=== PATIENT | female | born 1990 | race African-American/Black ===

== ENCOUNTER 2019-06-12 16:09 | Outpatient (CLI) | payer OTHER ==
[2019-06-12 16:57] LABS: Bilirubin,Urine NEG (Negative); Blood,Urine NEG (Negative); Color,Urine Yellow (Yellow); Mucus,Urine FEW /HPF; Urobilinogen,Urine < 2.0 mg/dL (<2.0)
[2019-06-12 17:00] LABS: Hematocrit 39.6 % (30.3-42.9); Hemoglobin 13.8 gm/dl (10.1-14.3); Mean Corpuscular HGB Conc 35 % (30-34); Mean Corpuscular Volume 95 fl (79-97); Platelet Count 264 K/mm3 (140-440); Red Blood Count 4.15 M/mm3 (3.65-5.03); Red Cell Distribution Width 14.7 % (13.2-15.2)
[2019-06-12 17:22] LABS: Alanine Aminotransferase 9 units/L (7-56); Uric Acid 6.4 mg/dL (3.5-7.6)
[2019-06-12 17:45] VITALS: BP 128/91
--- NOTE | 2019-06-12 20:50 | Ultrasound Report ---
ULTRASOUND BIOPHYSICAL PROFILE INDICATION / CLINICAL INFORMATION: elevated BP and blurred vision; ALAYNA. COMPARISON: None available. FINDINGS: BREATHING MOVEMENT = 2 GROSS BODY MOVEMENT = 2 TONE = 2 QUALITATIVE AMNIOTIC FLUID VOLUME = 2 TOTAL BIOPHYSICAL SCORE = 05/25 AMNIOTIC FLUID INDEX (cm) = 10.6 PRESENTATION: Cephalic. HEART RATE (beats per minute): 135 IMPRESSION: 1. biophysical profile = 05/25 Signer Name: Barry Pyle MD Signed: 06/12/2019 8:45 PM Workstation Name: [email or web address] [email or web address]
--- NOTE | 2019-06-12 20:51 | Ultrasound Report ---
US OB limited INDICATION: elevated BP and blurred vision; ALAYNA. COMPARISON: None available. FINDINGS: The heart rate measures 135 bpm. presentation is cephalic. Amniotic fluid index is normal , measuring 10.6 cm. Signer Name: Barry Pyle MD Signed: 06/12/2019 8:46 PM Workstation Name: [id number]
== END 2019-06-12 19:00 | disposition home or self-care (01) ==
LOC: TRG 16:09
PROVIDERS: ATTEND Obstetrics & Gynecology
DX: O47.03 False labor before 37 completed weeks of gestation, third trimester (principal); Z3A.37 37 weeks gestation of pregnancy
CPT/HCPCS: 36415; 59025; 76815; 76819; 81001; 82565; 83615; 84450; 84460; 84550; 85027